=== PATIENT | female | born 1975 | race Caucasian/White ===

== ENCOUNTER 2024-06-08 10:22 | Emergency (ER) | payer OTHER, SELFPAY ==
--- NOTE | ~2024-06-08 | XR_ITS ---
Clinical Indication: Cough PA and lateral views of the chest: Comparison: None Findings: The lungs are clear, without evidence of focal consolidation or pleural effusion. Cardiome diastinal silhouette is within normal limits. Bones and soft tissues are unremarkable. Impression: Normal chest. Reviewed, dictated and finalized at location . ATRIC DENTAL ASSISTANT Impression: Normal chest.
[2024-06-08 10:39] VITALS: BP 129/81; PULSE 80; RESP 20; TEMP 36.7; O2SAT 100
--- NOTE | 2024-06-08 11:08 | ED_ITS ---
HPI - URI/Sore Throat General Chief Complaint: Upper Respiratory Infection Stated Complaint: cough Time Seen by Provider: 06/08/24 11:12 Source: patient, RN notes reviewed and old records reviewed Mode of arrival: ambulatory Limitations: no limitations History of Present Illness HPI Narrative: 48-year-old female presents to the [facility] with complaints of a cough that started 10 days ago. States that she has tried [id number] products with no relief. Onset (ago): day(s) () Related Data Allergies Allergy/AdvReac Type Severity Reaction Status Date / Time No Known Allergies Allergy Mild Verified 06/08/24 11:14 Review of Systems Review of Systems: All systems reviewed & are unremarkable except as noted in HPI and below Constitutional: Constitutional: Reports no additional constitutional complaints ENT: Reports as per HPI Cardiovascular: Cardiovascular: Reports no additional cardiovascular compl aints, Denies chest pain and Denies dyspnea Respiratory: Respiratory: Reports no additional respiratory complaints, Denies chest congestion, Denies cough and Denies dyspnea Gastrointestinal: Gastrointestinal: Reports no additional gastrointestinal complaints, Denies abdominal pain, Denies nausea and Denies vomiting Musculoskeletal: Musculoskeletal: Reports no additional musculoskeletal complaints Integumentary/Breasts: Skin/Breast: Reports system reviewed and no additional complaints, except as docu PMFSH Family History Family History Mother Hypertension Sibling Patient's brother is in good health, Onset Age: 33 Father Family history of diabetes mellitus in first degree relative Other Family history of malignant neoplasm of breast Social History Social History Smoking status: Never smoker Alcohol intake: never Comments At the time of my signature, I reviewed and agree with the nursing past medical, surgical, social, and family history. There is no relevant family history pertinent to the patient complaint. Exam Const: General: cooperative, healthy appearing, comfortable, no acute distress, well developed, alert and well nourished Nutritional Appearance: well nourished Orientation/consciousness: patient oriented x3 Limitations: no limitations HENMT: Head: normal to inspection Ears: hearing grossly normal bilaterally and external ears normal Face/Nose/Sinus: Normal external nose present, normal facial exam and face symmetric Face and sinus: normal facial exam and face symmetric Mouth: Yes Normal oral and palatal mucosa present, Yes lip normal and Yes tongue normal Throat: posterior oropharynx normal, uvula midline and no uvular edema Eyes: General: appearance normal, both eyes and all related structures Alignment and Position: alignment normal Periorbital: periorbital findings normal Neck: Neck: normal visual inspection, full ROM, no lymphadenopathy and no meningeal signs Chest: Chest palpation & inspection: normal inspection of the chest Resp: Effort & Inspection: normal respiratory effort and able to speak in complete sentences Auscultation: clear to auscultation bilaterally, no crackles, no rales, no rhonchi and no wheezes Cardio: Rate: regular rate Skin: General skin exam: normal color and no rashes or lesions noted Lesions: no lesions Rashes: no rashes Wounds: no wounds Neuro: General: patient oriented x3, gait normal, tone normal, moves all extremities and no meningeal signs Cognition (Neuro): normal cognition Speech: normal speech Gait exam (Neuro): Normal gait present Extrem: General: normal to inspection, full ROM, capillary refill normal and normal gait Psych: Appearance: grossly normal and well kempt Mental Status: mental status grossly normal Speech and movement: Normal speech and movement present and Clear speech present Affect: normal affect Attitude: cooperative Course Course Level of Care: Express Care Visit Vital Signs Vital signs: Vital Signs Temperature 98.0 F 06/08/24 10:39 Pulse Rate 80 06/08/24 10:39 Respiratory Rate 20 06/08/24 10:39 Blood Pressure 129/81 06/08/24 10:39 Pulse Oximetry 100 06/08/24 10:39 Oxygen Delivery Room Air 06/08/24 10:39 Temperature 98.0 F 06/08/24 10:39 Pulse Rate 80 06/08/24 10:39 Respiratory Rate 20 06/08/24 10:39 Blood Pressure 129/81 06/08/24 10:39 Pulse Oximetry 100 06/08/24 10:39 Oxygen Delivery Room Air 06/08/24 10:39 Reviewed MDM - URI/Sore Throat MDM Narrative Medical decision making narrative: Patient sitting comfortably in exam room. Nontoxic, vitals stable. Patient in no acute distress. Patient presents with 10 day history of cough. Will treat for bronchitis with antibiotic, albuterol and prednisone. X-ray showed no acute findings Patient appropriate for outpatient treatment and follow-up Discharge instructions reviewed with patient, as well as provided in writing per nursing staff. The instructions also include specific and strict return/GO TO THE ER as well as f/u information. All questions have been answered, and the patient deny any further questions with discharge and discharge plan. Some parts of this dictation were generated by voice recognition software and may contain typographical and/or grammatical inaccuracies. Differential Diagnosis Differential diagnosis: Likely upper respiratory infection, otitis media, sinusitis, viral infection and bronchitis Imaging Data Radiologist's impression: Clinical Indication: Cough PA and lateral views of the chest: Comparison: None Findings: The lungs are clear, without evidence of focal consolidation or pleural effusion. Cardiomediastinal silhouette is within normal limits. Bones and soft tissues are unremarkable. Impression: Normal chest. Critical Care Time Critical Care Time Critical Care Time: No Discharge Plan Discharge Clinical Impression: Bronchitis Patient Disposition: Home, Self-Care Condition: Stable Instructions: Antibiotic Form, Acute Bronchitis (ED) Additional Instructions: Your x-rays did not show signs of pneumonia It is very important to treat your symptoms. Drink plenty of water, Gatorade, Pedialyte, ice pops or Jell-O. -Alternate Tylenol and Motrin per package directions for fever or pain. You can alternate every 4 hours -Antihistamine medication such as Benadryl at night and Zyrtec/Claritin/Tash during the day can help improve symptoms. -doing daily nasal irrigations can help relieve pressure your sinuses. Things like a Neti pot -Use Flonase twice a day for 5 days then daily to help reduce the inflammation and dry up your sinuses. -You can also use Mucinex. Be sure to drink plenty of water with this medication at least 8 ounces with every dose and it is important to drink 8 to 10 glasses of water per day. Water is a natural decongestant -Eat and drink things that are easy to swallow, like tea or soup, or popsicles. -Oral rinses such as: Salt water gargles and/or may use topical anesthetic (eg. Chloraseptic spray) or lozenges to relieve dryness or throat pain). -Frequent hand washing or hand wood heel flap trimmer is one of the best ways to prevent spread of infection. -Using a vaporizer or humidifier at night will also help thin secretions and help with coughing up phlegm. -Follow up with primary care provider in 7-10 days if condition is not improving - For new or worsening symptoms go directly to the nearest ER Patient Language: Citizen Of [place] Prescriptions: New doxycycline monohydrate 100 mg tablet 100 mg PO BID Qty: 14 0RF albuterol sulfate 90 mcg/actuation HFA aerosol inhaler 2 puff inhalation QID PRN (Reason: shortness of breath or wheezing) Qty: 6.7 0RF (DME) Aerochamber MV Spacer See Rx Instructions .Route Qty: 1 0RF Rx Instructions: As directed prednisone 20 mg tablet See Rx Instructions .Route .COMPLEX Qty: 9 0RF Rx Instructions: Take 40 mg daily for 3 days, 20 mg daily for 3 days Follow-up/Referrals: PHYSICIAN,INSURANCE CLAIMS CLERK [Primary Care Provider] - Stand Alone Forms: Work/School Release IP Time of Disposition: 11:53
== END 2024-06-08 12:00 | disposition home or self-care (01) ==
PROVIDERS: Emergency Provider Nurse Practitioner; Referring Provider Emergency Medicine
DX: J40 Bronchitis, not specified as acute or chronic (principal)
CPT/HCPCS: 71046; 99203; G0463

== ENCOUNTER 2024-06-25 08:24 | Emergency (ER) | payer OTHER, SELFPAY ==
[2024-06-25 08:33] VITALS: BP 130/81; PULSE 65; RESP 16; TEMP 36.7; O2SAT 98
--- NOTE | 2024-06-25 08:38 | ED_ITS ---
HPI - URI/Sore Throat General Chief Complaint: Upper Respiratory Infection Stated Complaint: congestion and coughing Time Seen by Provider: 06/25/24 08:38 Source: patient, RN notes reviewed and old records reviewed Mode of arrival: ambulatory Limitations: no limitations History of Present Illness HPI Narrative: patient recently treated for a cough with doxycycline, steroids, albuterol presents with complaints of continued cough. she reports that she has had a cough for a month a total, just finished doxycycline a few days ago and took her course of steroids as prescribed. She reports that she is continuing to use her albuterol inhaler with good relief. She is concerned because she has had a cough for so long. She states that she feels better than she did, but is becoming very tired of the cough. She denies any wheezing. She denies any fever, chills, sweats. She voices no other concerns or complaints today Related Data Allergies Allergy/AdvReac Type Severity Reaction Status Date / Time No Known Allergies Allergy Mild Verified 06/25/24 08:31 Review of Systems Review of Systems: All systems reviewed & are unremarkable except as noted in HPI and below Constitutional: Constitutional: Reports no additional constitutional complaints ENT: Reports system reviewed and no additional complaints, except as documented Cardiovascular: Cardiovascular: Reports no additional cardiovascular complaints Respiratory: Respiratory: Reports no additional respiratory complaints and Reports cough Gastrointestinal: Gastrointestinal: Reports no additional gastrointestinal complaints [facility] Family History Family History Mother Hypertension Sibling Patient's brother is in good health, Onset Age: 33 Father Family history of diabetes mellitus in first degree relative Other Family history of malignant neoplasm of breast Social History Social History Smoking status: Never smoker Alcohol intake: never Comments At the time of my signature, I reviewed and agree with the nursing past medical, surgical, social, and family history. There is no relevant family history pertinent to the patient complaint. Exam Const: General: cooperative, no acute distress, alert and awake Orientation/consciousness: oriented to person, oriented to place and oriented to time HENMT: Head: normal to inspection Resp: Effort & Inspection: normal respiratory effort and able to speak in complete sentences Auscultation: clear to auscultation bilaterally, no crackles, no rales, no rhonchi and no wheezes Cardio: Palpation: normal PMI Rate: regular rate Rhythm: regular rhythm Heart sounds: S1 normal heart sound present and S2 normal heart sound present Neuro: General: oriented to person, oriented to place and oriented to time Cranial nerves: Yes CN's II-XII intact bilaterally Psych: Appearance: grossly normal Thought process: Normal thought process present Insight: Good insight present (Psych) Judgement: Good judgement present (Psych) Course Course Level of Care: Express Care Visit Vital Signs Vital signs: Vital Signs Temperature 98.1 F 06/25/24 08:33 Pulse Rate 65 06/25/24 08:33 Respiratory Rate 16 06/25/24 08:33 Blood Pressure 130/81 06/25/24 08:33 Pulse Oximetry 98 06/25/24 08:33 Oxygen Delivery Room Air 06/25/24 08:33 Temperature 98.1 F 06/25/24 08:33 Pulse Rate 65 06/25/24 08:33 Respiratory Rate 16 06/25/24 08:33 Blood Pressure 130/81 06/25/24 08:33 Pulse Oximetry 98 06/25/24 08:33 Oxygen Delivery Room Air 06/25/24 08:33 Reviewed MDM - URI/Sore Throat MDM Narrative Medical decision making narrative: patient recovering after taking doxycycline and steroids. Feeling better, no distress today. She is advised that cough can often linger for several weeks. Refill albuterol, start benzonatate. Patient agreeable to plan. Discharge instructions reviewed with patient, as well as provided in writing per nursing staff. The instructions also include specific and strict return/GO TO THE ER as well as f/u information. All questions have been answered, and the patient deny any further questions with discharge and discharge plan. Some parts of this dictation were generated by voice recognition software and may contain typographical and/or grammatical inaccuracies. Differential Diagnosis Differential diagnosis: Likely upper respiratory infection, otitis media, sinusitis and bronchitis Medical Records Attestation: I reviewed the patient's medical records. Discharge Plan Discharge Clinical Impression: Cough Qualifiers: Cough type: unspecified Qualified Code(s): R05.9 - Cough, unspecified Patient Disposition: Home, Self-Care Condition: Stable Instructions: Antibiotic Form, Acute Cough (ED) Additional Instructions: Take medications as prescribed. Follow with primary care provider. Emergency department for any new or worse symptoms Patient Language: [place] Prescriptions: New benzonatate 200 mg capsule 200 mg PO TID PRN (Reason: cough) Qty: 60 0RF albuterol sulfate [Ventolin HFA] 90 mcg/actuation HFA aerosol inhaler 2 puff inhalation QID PRN (Reason: shortness of breath or wheezing) Qty: 8.5 0RF Follow-up/Referrals: PHYSICIAN,PACKAGING ASSEMBLER [Primary Care Provider] - Time of Disposition: 08:44
== END 2024-06-25 08:46 | disposition home or self-care (01) ==
PROVIDERS: Emergency Provider Nurse Practitioner Family; Referring Provider Emergency Medicine
DX: R05.9 Cough, unspecified (principal)
CPT/HCPCS: 99213; G0463

== ENCOUNTER 2024-07-23 11:10 | Emergency (ER) | payer OTHER, SELFPAY ==
--- NOTE | ~2024-07-23 | XR_ITS ---
EXAMINATION: XR chest 2V DATE: 07/23/2024 11:37 INDICATION: Pleuritic chest pain. Cough. TECHNIQUE: Frontal and lateral views of the chest were obtained. COMPARISON: Chest 2 views 06/08/2024 FINDINGS: There are airspace opacities at left lung base. There is a small left pleural effusion. No pneumothorax. The heart size is normal. IMPRESSION: 1. Airspace opacities at left lung base, consistent with atelectasis versus pneumonia. 2. Small left pleural effusion. Reviewed, dictated and finalized at location A. ALS ASSISTANT IMPRESSION: 1. Airspace opacities at left lung base, consistent with atelectasis versus pne umonia. 2. Small left pleural effusion.
[2024-07-23 11:19] VITALS: BP 128/70; PULSE 69; RESP 18; TEMP 36.7; O2SAT 100
--- NOTE | 2024-07-23 11:24 | ED.URI ---
HPI - URI/Sore Throat General Chief Complaint: Unspecified Stated Complaint: LT Side Rib Pain History of Present Illness HPI Narrative: Patient is a 48-year-old female, past medical history reviewed and significant for recent URI, for which she was evaluated in May and again in June for postviral cough. She states her symptoms did eventually resolve however with past week she has been coughing a little bit more and has had some thick nasal discharge. Yesterday morning she woke and felt well, went to work and noticed a mild pain in the left lateral chest wall, worse with movement and deep breathing or coughing. She states those symptoms have worsened since that time. She has no radicular symptoms, she denies rash to the skin surface, she has not had a fever. She denies shortness of breath. She denies any additional associated symptoms or modifying factors. She is not . Related Data Allergies Allergy/AdvReac Type Severity Reaction Status Date / Time No Known Allergies Allergy Mild Verified 07/23/24 11:24 Review of Systems ENT: Reports as per HPI Respiratory: Respiratory: Reports as per HPI [facility] Family History Family History Mother Hypertension Sibling Patient's brother is in good health, Onset Age: 33 Father Family history of diabetes mellitus in first degree relative Other Family history of malignant neoplasm of breast Social History Social History Smoking status: Never smoker Alcohol intake: never Exam Const: General: cooperative, healthy appearing, comfortable, no acute distress and well developed Nutritional Appearance: average body habitus Orientation/consciousness: oriented to person, oriented to place, oriented to time and patient oriented x3 Limitations: no limitations HENMT: Face/Nose/Sinus: Normal external nose present and Normal nares present Face and sinus: normal facial exam, sinuses nontender and face symmetric Mouth: Yes Normal oral and palatal mucosa present, Yes lip normal and Yes tongue normal Teeth and gingiva: dentition normal Throat: posterior oropharynx normal Neck: Neck: normal visual inspection, full ROM, no lymphadenopathy, no meningeal signs and trachea midline Chest: Other: patient is tender palpation along the left anterior axillary line, 4th to 6th intercostal space, there is no crepitus or subcutaneous emphysema, no palpable mass discoloration. no rash noted Resp: Effort & Inspection: normal respiratory effort Auscultation: clear to auscultation bilaterally Percussion: percussion normal Cardio: Rate: regular rate Rhythm: regular rhythm Heart sounds: S1 normal heart sound present and S2 normal heart sound present Peripheral pulses: Peripheral pulses 2+ throughout Back/Spine/Pelvis: Back: no CVA tenderness Cervical Spine: pain with cervical ROM Neuro: General: oriented to person, oriented to place, oriented to time and patient oriented x3 Cognition (Neuro): normal cognition Speech: normal speech Gait exam (Neuro): Normal gait present Motor exam (neuro): 5/5 motor strength present throughout and Motor abnormalities not present Extrem: General: normal to inspection and full ROM Other: No rash noted to left flank chest wall Course Course Level of Care: [facility] Care Visit ([id number]) Vital Signs Vital signs: Vital Signs Temperature 36.7 C 07/23/24 11:19 Pulse Rate 69 07/23/24 11:19 Respiratory Rate 18 07/23/24 11:19 Blood Pressure 128/70 07/23/24 11:19 Pulse Oximetry 100 07/23/24 11:19 Oxygen Delivery Room Air 07/23/24 11:19 Temperature 36.7 C 07/23/24 11:19 Pulse Rate 69 07/23/24 11:19 Respiratory Rate 18 07/23/24 11:19 Blood Pressure 128/70 07/23/24 11:19 Pulse Oximetry 100 07/23/24 11:19 Oxygen Delivery Room Air 07/23/24 11:19 MDM - URI/Sore Throat MDM Narrative Medical decision making narrative: chest x-ray, patient has a small focal pneumonia in the left lower lobe of the lung, with a small pleural effusion versus atelectasis. Will treat empirically with Levaquin, suspecting post viral pneumonia with follow-up with PCP following completion of antibiotic therapy for repeat imaging to ensure infectious processes cleared. Supportive care otherwise, patient will proceed to the ER she develops any shortness of breath or with any concerns her condition is worsening. Verbal understanding of all instructions provided received by the patient prior to discharge Differential Diagnosis Differential diagnosis: Likely upper respiratory infection, sinusitis, viral infection and other ( postviral pneumonia, chest wall strain, pleurisy, costochondritis, herpes zoster) Discharge Plan Discharge Clinical Impression: Left lower lobe pneumonia Qualifiers: Pneumonia type: due to unspecified organism Qualified Code(s): J18.9 - Pneumonia, unspecified organism Patient Disposition: Home, Self-Care Condition: Stable Instructions: Antibiotic Form, Pneumonia (ED) Additional Instructions: START AND COMPLETE ORAL ANTIBIOTICS PRESCRIBED. YOU MAY USE YOUR INHALER FOR RESCUE IF NEEDED. SEE YOUR PRIMARY CARE PROVIDER IN 1-2 WEEKS FOR FOLLOW-UP, SOONER IF CONDITION IS NOT IMPROVING. PROCEED TO THE ER IF YOUR CONDITION WORSENS IN ANY WAY OR WITH ANY FURTHER EMERGENCY CONCERNS Patient Language: Spanish Prescriptions: New levofloxacin 750 mg tablet 750 mg PO DAILY Qty: 7 0RF No Action benzonatate 200 mg capsule 200 mg PO TID PRN (Reason: cough) Qty: 60 0RF albuterol sulfate [Ventolin HFA] 90 mcg/actuation HFA aerosol inhaler 2 puff inhalation QID PRN (Reason: shortness of breath or wheezing) Qty: 8.5 0RF Follow-up/Referrals: PHYSICIAN,MEDICAL DEVICE ASSEMBLER [Primary Care Provider] - Stand Alone Forms: Work/School Release IP Time of Disposition: 11:57
== END 2024-07-23 12:08 | disposition home or self-care (01) ==
PROVIDERS: Emergency Provider Nurse Practitioner Family
DX: J18.9 Pneumonia, unspecified organism (principal)
CPT/HCPCS: 71046; 99213; G0463